=== PATIENT | male | born 1970 | race Caucasian/White ===

== ENCOUNTER 2016-08-15 18:45 | Emergency (ER) | payer BC ==
[~2016-08-15] VITALS: Ht 180.3 cm; Wt 87.1 kg
[~2016-08-15 18:45] MED LIST: MEDROLDOSEPACK PO; NOHOMEMEDICATIONS; PROVENTIL INH; ZPAK PO
[2016-08-15] MEDS ORDERED: LATUDA60 MG PO (19:10)
[2016-08-15] MEDS ORDERED: ALLOPURINOL 30300 M2 PO (19:10)
[2016-08-15] MEDS ORDERED: CLARITIN10 MG PO (19:11)
[2016-08-15 19:24] LABS: HEMOGLOBIN 15.6 gm/dL (14.0-18.0); WBC 2.2 thou/uL (4.0-11.0)
[2016-08-15 19:27] LABS: HEMATOCRIT 45.2 % (42.0-52.0); MCH 32.4 pg (26.0-34.0); MCHC 34.5 g/dL (28.0-37.0); PLATELET COUNT 232 thou/uL (150-400); RBC 4.81 mil/uL (4.50-6.00); RDW 14.4 % (10.5-14.5)
[2016-08-15 19:29] LABS: MANUAL DIFF YES
[2016-08-15 19:34] LABS: ANION GAP 8 mmol/L (7-16); BUN 11 mg/dL (7-18); CALCIUM 7.8 mg/dL (8.5-10.1); CHLORIDE 107 mmol/L (98-107); CO2 27 mmol/L (21-32); GLUCOSE 116 mg/dL (70-99); POTASSIUM 3.6 mmol/L (3.5-5.1); SODIUM 142 mmol/L (136-145)
[2016-08-15 20:12] LABS: SGOT 52 U/L (15-37)
[2016-08-15 20:13] LABS: ALBUMIN 3.1 g/dL (3.4-5.0); ALKALINE PHOSPHATASE 101 U/L (46-116); SALICYLATE < 2.8 mg/dL (2.8-20.0); SGPT 51 U/L (30-65); TOTAL BILIRUBIN 0.2 mg/dL (<0.1-1.0); TOTAL PROTEIN 6.5 g/dL (6.4-8.2)
[2016-08-15 20:14] LABS: URINE BILIRUBIN NEGATIVE (Negative); URINE BLOOD TRACE (Negative); URINE COLOR YELLOW; URINE GLUCOSE-RANDOM* NEGATIVE (Negative); URINE KETONES TRACE (Negative); URINE LEUKOCYTES-REFLEX NEGATIVE (Negative); URINE PROTEIN (DIPSTICK) TRACE (Negative); URINE UROBILINOGEN 0.2 E.U./dl (0.2-1.0)
[2016-08-15 20:20] LABS: ABSOLUTE NEUTROPHILS 1.1 thou/uL (1.4-8.2); TOTAL CELL COUNT 100
[2016-08-15 20:21] LABS: AMP/METHAMP Negative (Negative); BARBITURATES Negative (Negative); BENZODIAZEPINES Negative (Negative); COCAINE Negative (Negative); METHADONE Negative (Negative); OPIATES Negative (Negative); PCP Negative (Negative); THC Negative (Negative)
[2016-08-16 03:32] VITALS: BP 145/90
== END 2016-08-16 03:34 | disposition short-term general hospital (02) ==
LOC: ER 18:45
PROVIDERS: Emergency Medicine
DX: R45.851 Suicidal ideations (principal); F10.120 Alcohol abuse with intoxication, uncomplicated; F32.9 Major depressive disorder, single episode, unspecified; M10.9 Gout, unspecified; Z88.2 Allergy status to sulfonamides